=== PATIENT | male | born 2000 | race Two or more races ===

== ENCOUNTER 2024-08-22 20:05 | Emergency (ER) | payer SELFPAY ==
[2024-08-22] MEDS: Alum Hydrox/Mag Hydrox/Simeth 15 ML, Metoclopramide 5 MG, Lidocaine 2% 5 ML PO ONE (21:04)
[2024-08-22 21:26] LABS: BASOPHILS ABSOLUTE AUTO 0.04 K/uL (0.00-0.20); BASOPHILS PERCENT AUTO 0.4 % (0.0-1.0); EOSINOPHILS ABSOLUTE AUTO 0.07 K/uL (0.00-0.45); EOSINOPHILS PERCENT AUTO 0.7 % (0.0-6.0); HEMATOCRIT 41.9 % (42.0-52.0); HEMOGLOBIN 14.8 g/dL (14.0-18.0); IMMATURE GRAN ABSOLUTE AUTO 0.04 K/uL (0.00-0.05); IMMATURE GRAN PERCENT AUTO 0.4 % (0.0-0.4); LYMPHOCYTES ABSOLUTE AUTO 3.63 K/uL (1.00-4.80); LYMPHOCYTES PERCENT AUTO 38.5 % (24.0-44.0); MEAN CORPUSCULAR HEMOGLOBIN 30.4 pg (28.0-32.0); MEAN CORPUSCULAR HGB CONC 35.3 g/dL (32.0-36.0); MEAN PLATELET VOLUME 9.3 fL (9.4-12.4); MONOCYTES ABSOLUTE AUTO 0.71 K/uL (0.00-0.80); MONOCYTES PERCENT AUTO 7.5 % (0.0-8.0); NEUTROPHILS ABSOLUTE AUTO 4.93 K/uL (1.80-7.70); NEUTROPHILS PERCENT AUTO 52.5 % (41.0-71.0); PLATELET COUNT,PLT 291 K/uL (150-400); RED BLOOD CELL COUNT 4.87 M/uL (4.52-5.90); WHITE BLOOD CELL COUNT,WBC 9.42 K/uL (3.9-11.3)
[2024-08-22 21:39] LABS: INR 1.04 (0.86-1.11)
== END 2024-08-22 22:13 | disposition home or self-care (01) ==
LOC: MW.ED 20:05
DX: R04.1 Hemorrhage from throat (principal); J02.9 Acute pharyngitis, unspecified; F17.210 Nicotine dependence, cigarettes, uncomplicated
CPT/HCPCS: 36415; 85025; 85610; 86308; 87651; 99284; A9270